=== PATIENT | female | born 1980 | race Caucasian/White ===

== ENCOUNTER 2019-12-14 12:48 | Emergency (ER) | payer MEDICARE, MEDICAID, SELFPAY ==
[2019-12-14] VITALS (9 sets, daily range): BP systolic 87–105; BP diastolic 54–84; PULSE 78–116; RESP 14–18; TEMP 36.4–37.4; O2SAT 97–100; BMI 18.8
--- NOTE | 2019-12-14 14:04 | XRR_ITS ---
PROCEDURE INFORMATION: Exam: XR Chest, 1 View Exam date and time: 12/14/2019 2:17 PM Age: 39 years old Clinical indication: Chest pain; Type not specified TECHNIQUE: Imaging protocol: XR of the chest Views: 1 view. COMPARISON: No relevant prior studies available. FINDINGS: Lungs: Moderately hyperaerated lungs consistent with deep inspiratory effort vs significant reactive airway disease vs moderate COPD . Pleural space: Unremarkable. No pleural effusion. No pneumothorax. Heart/Mediastinum: Unremarkable. No cardiomegaly. Bones/joints: Dextroscoliosis. XR/XR chest 1V portable [id number] IMPRESSION: Moderately hyperaerated lungs consistent with deep inspiratory effort vs significant reactive airway disease vs moderate COPD .
[2019-12-14 15:39] LABS: Alanine Aminotransferase 24 U/L (0-33); Albumin Level 4.3 g/dL (3.5-5.2); Alkaline Phosphatase 34 IU/L (35-105); Anion Gap 19.3 (5-19); Aspartate Amino Transferase 23 U/L (0-32); Blood Urea Nitrogen 17 mg/dL (6-20); Calcium 9.2 mg/dL (8.5-10.5); Carbon Dioxide 18 mmol/L (22-29); Chloride 105 mmol/L (98-107); Globulin 2.9 g/dL (1.3-4.6); Glomerular Filtration Rate 137.4 mL/min (90-130); Glucose 75 mg/dL (65-115); Osmolality Calculated 281 mOsm/kg (285-295); Potassium 4.3 mmol/L (3.5-5.1); Sodium 138 mmol/L (136-145); Total Bilirubin 0.5 mg/dL (0.15-1.2); Total Protein 7.2 g/dL (6.6-8.7)
[2019-12-14 15:50] LABS: Basophils % 0.1 %; Hematocrit 39.6 % (37.0-47.0); Hemoglobin 11.3 g/dL (11.5-15.3); Lymphocytes # 0.8 10^3/uL (0.8-4.8); Lymphocytes % 8.2 %; Mean Corpuscular HGB Conc 28.5 g/dL (30.0-36.0); Mean Corpuscular Hemoglobin 21.8 pg (28.0-34.0); Mean Corpuscular Volume 76.4 fL (81-99); Mean Platelet Volume 11.4 fL (7.4-10.4); Monocytes # 0.2 10^3/uL (0.2-0.9); Monocytes % 1.5 %; Neutrophils # 9.1 10^3/uL (1.8-7.7); Nucleated Red Blood Cells % 0 %; Platelet Count 255 10^3/cmm (130-400); Red Blood Count 5.18 10^6/uL (4.1-5.3); Red Cell Distribution Width 15.1 % (12.1-15.1); White Blood Count 10.1 10^3/uL (4.0-10.0)
[2019-12-14 16:06] LABS: HCG, Serum Qual Negative (Negative)
--- NOTE | 2019-12-14 16:16 | ED_ITS ---
Documented by User: Jorge Luis Tsai DO 12/14/19 16:18 HPI - Weakness General: Chief complaint: Weakness Stated complaint: sent by juliana cárdenas Time Seen by Provider: 12/14/19 15:48 History of Present Illness: HPI Narrative: Patient's caregiver reports that she is diagnosed with urinary tract infection yesterday. She is not sure if the antibiotics have been started. She states that throughout the day today the patient has not been acting her normal self. Patient is always nonverbal but today has seemed rather listless and has not gotten up out of bed. Patient usually walks or paces around the house continuously throughout the day and a good part of the night. MD Complaint: generalized weakness Onset (ago): hour(s) Duration: constant Location: generalized Migration: none Severity: severe Review of Systems General: Reports: 10 or more systems reviewed and unremarkable except in HPI and below PFSH ED PFSH: Social History Smoking and tobacco status: never smoked Alcohol intake: never History of recent travel: No Physical Exam Const: COMMON NORMALS: no acute distress, healthy appearing and well nourished GENERAL APPEARANCE: cooperative and well developed HENMT: COMMON NORMALS: normocephalic and atraumatic HEAD & SCALP: normal to inspection, normocephalic and atraumatic Eye: GENERAL EYE: appearance normal, both eyes and all related structures Neck/C-Spine: COMMON NORMALS: full ROM, no lymphadenopathy and no meningeal signs GENERAL: Yes normal visual inspection CERVICAL SPINE: Yes cervical ROM normal and Yes normal cervical lordosis Chest: COMMONS NORMALS: normal inspection of the chest and normal palpation of entire chest wall Resp: COMMON NORMALS: normal respiratory effort, clear to auscultation bilaterally and percussion normal AUSCULTATION: clear to auscultation bilaterally PERCUSSION: percussion normal Cardio: COMMON NORMALS: regular rate, regular rhythm, S1 normal heart sound present and S2 normal heart sound present JUGULAR VENOUS DISTENTION: no JVD PALPATION: normal PMI RATE: regular rate RHYTHM: regular rhythm HEART SOUNDS: S1 normal heart sound present and S2 normal heart sound present GI: COMMON NORMALS: Soft to palpation and No hepatosplenomegaly present INSPECTION: Yes normal to inspection PALPATION: Yes Soft to palpation and Yes No hepatosplenomegaly present PERCUSSION: normal to percussion : COMMON NORMALS: Yes no CVA tenderness BLADDER/KIDNEY EXAM: Yes no CVA tenderness Back/Pelvis: COMMON NORMALS: no CVA tenderness, thoracic and lumbar spine normal to inspection and thoraco-lumbar ROM normal Extremity: COMMON NORMALS: normal to inspection, full ROM and capillary refill normal Neuro: MENINGEAL SIGNS: Yes no meningeal signs Skin: COMMON NORMALS: no rashes or lesions noted, no wounds and turgor normal GENERAL SKIN EXAM: no rashes or lesions noted, elasticity normal and turgor normal LESIONS: no lesions RASHES: no rashes TRAUMA: no lacerations or abrasions HAIR: normal NAILS: normal Course Vital Signs: Vital signs: Vital Signs Temperature 99.3 F 12/14/19 16:05 Pulse Rate 80 12/14/19 21:22 Respiratory Rate 18 12/14/19 21:22 Blood Pressure 98/63 12/14/19 21:22 Pulse Oximetry 99 12/14/19 21:22 MDM - Weakness Lab Data: Labs: Lab Results 12/14/19 12/14/19 12/14/19 Range/Units 14:45 15:37 15:37 WBC 10.1 H (4.0-10.0) 10^3/ uL RBC 5.18 (4.1-5.3) 10^6/u L Hgb 11.3 L (11.5-15.3) g/dL Hct 39.6 (37.0-47.0) % MCV 76.4 L (81-99) fL MCH 21.8 L (28.0-34.0) pg MCHC 28.5 L (30.0-36.0) g/dL RDW 15.1 (12.1-15.1) % Plt Count 255 (130-400) 10^3/c mm MPV 11.4 H (7.4-10.4) fL Neut % (Auto) 90.0 % Lymph % (Auto) 8.2 % [place] % (Auto) 1.5 % Eos % (Auto) 0.0 % Baso % (Auto) 0.1 % Neut # (Auto) 9.1 H (1.8-7.7) 10^3/u L Lymph # (Auto) 0.8 (0.8-4.8) 10^3/u L [place] # (Auto) 0.2 (0.2-0.9) 10^3/u L Eos # (Auto) 0.0 (0.0-0.8) 10^3/u L Baso # (Auto) 0.0 (0.0-0.1) 10^3/u L Nucleated RBC % (a uto) 0 % Nucleated RBCs # 0.0 /100WBC Sodium 138 (136-145) mmol/L Potassium 4.3 (3.5-5.1) mmol/L Chloride 105 (98-107) mmol/L Carbon Dioxide 18 L (22-29) mmol/L Anion Gap 19.3 H (5-19) BUN 17 (6-20) mg/dL Creatinine 0.5 (0.5-0.9) mg/dL GFR Calculation 137.4 H (90-130) mL/min Glucose 75 (65-115) mg/dL Calculated Osmolal ity 281 L (285-295) mOsm/k g Lactic Acid (0.5-2.2) mmol/L Calcium 9.2 (8.5-10.5) mg/dL Total Bilirubin 0.5 (0.15-1.2) mg/dL AST 23 (0-32) U/L ALT 24 (0-33) U/L Alkaline Phosphata se 34 L (35-105) IU/L Total Protein 7.2 (6.6-8.7) g/dL Albumin 4.3 (3.5-5.2) g/dL Globulin 2.9 (1.3-4.6) g/dL HCG, Qual Negative (Negative) Urine Color (Yellow) Urine Appearance (CLEAR) Urine pH (5-7) Ur Specific Gravit y (1.005-1.030) Urine Protein (Negative) Urine Glucose (UA) (Normal) Urine Ketones (Negative) Urine Blood (Negative) Urine Nitrate (Negative) Urine Bilirubin (NEGATIVE) Urine Urobilinogen (Negative) mg/dL Ur Leukocyte Renea ase (Negative) 12/14/19 12/14/19 Range/Units 15:37 20:20 WBC (4.0-10.0) 10^3/ uL RBC (4.1-5.3) 10^6/u L Hgb (11.5-15.3) g/dL Hct (37.0-47.0) % MCV (81-99) fL MCH (28.0-34.0) pg MCHC (30.0-36.0) g/dL RDW (12.1-15.1) % Plt Count (130-400) 10^3/c mm MPV (7.4-10.4) fL Neut % (Auto) % Lymph % (Auto) % [place] % (Auto) % Eos % (Auto) % Baso % (Auto) % Neut # (Auto) (1.8-7.7) 10^3/u L Lymph # (Auto) (0.8-4.8) 10^3/u L [place] # (Auto) (0.2-0.9) 10^3/u L Eos # (Auto) (0.0-0.8) 10^3/u L Baso # (Auto) (0.0-0.1) 10^3/u L Nucleated RBC % (a uto) % Nucleated RBCs # /100WBC Sodium (136-145) mmol/L Potassium (3.5-5.1) mmol/L Chloride (98-107) mmol/L Carbon Dioxide (22-29) mmol/L Anion Gap (5-19) BUN (6-20) mg/dL Creatinine (0.5-0.9) mg/dL GFR Calculation (90-130) mL/min Glucose (65-115) mg/dL Calculated Osmolal ity (285-295) mOsm/k g Lactic Acid 1.4 (0.5-2.2) mmol/L Calcium (8.5-10.5) mg/dL Total Bilirubin (0.15-1.2) mg/dL AST (0-32) U/L ALT (0-33) U/L Alkaline Phosphata se (35-105) IU/L Total Protein (6.6-8.7) g/dL Albumin (3.5-5.2) g/dL Globulin (1.3-4.6) g/dL HCG, Qual (Negative) Urine Color Yellow (Yellow) Urine Appearance Clear (CLEAR) Urine pH 5 (5-7) Ur Specific Gravit y 1.015 (1.005-1.030) Urine Protein Neg (Negative) Urine Glucose (UA) Norm (Normal) Urine Ketones 2+ H (Negative) Urine Blood Neg (Negative) Urine Nitrate Negative (Negative) Urine Bilirubin Neg (NEGATIVE) Urine Urobilinogen Norm (Negative) mg/dL Ur Leukocyte Renea ase Negative (Negative) Discharge Plan Discharge Patient Disposition: Home, Self-Care Clinical Impression: Dehydration Condition: Stable Prescriptions: No Action escitalopram oxalate [Lexapro] 10 mg tablet 10 mg PO DAILY RF: 0 Alyacen 35 (28) 1-35 mg-mcg tablet 1 tab PO DAILY RF: 0 diphenhydramine HCl [Allergy (diphenhydramine)] 12.5 mg/5 mL liquid 25 mg PO Q6H PRN (Reason: unknowm) RF: 0 clotrimazole-betamethasone 1-0.05 % cream 1 applic TOPICAL BID RF: 0 clotrimazole 1 % cream 1 applic TOPICAL .every 4 hours RF: 0 carbamide peroxide [Debrox] 6.5 % drops 5 drop EAR-BOTH DAILY RF: 0 bismuth subsalicylate [Pepto-Bismol] 262 mg tablet,chewable 1 tab PO .prn PRN (Reason: unknown) RF: 0 acetaminophen [Tylenol] 325 mg tablet 325 mg PO .every 4 hours PRN (Reason: unknown) RF: 0 promethazine 25 mg suppository 25 mg ID .prn PRN (Reason: unknown) RF: 0 Dqfn-Dc-Qiau with Iron 0.5 mg fluoride -10 mg iron tablet,chewable 1 tab PO DAILY RF: 0 loratadine 5 mg/5 mL solution 10 ml PO DAILY RF: 0 polyethylene glycol 3350 [Miralax] 17 gram/dose powder 17 gm PO DAILY RF: 0 Neosporin (bad-zbx-njieq) 3.5mg-400 unit- 5,000 unit/gram Ointment 1 applic TOPICAL DAILY PRN (Reason: skin) RF: 0 acetaminophen 120 mg Suppository 120 mg ID DAILY PRN (Reason: pain/fever) RF: 0 Robitussin Cough and Cold CF 2.5-5-50 mg/5 mL Liquid 15 ml PO Q4H PRN (Reason: Cough) RF: 0 Anbesol Cold Sore 20-3-1-64.9 % Ointment 1 ea TOPICAL DAILY PRN (Reason: unknown) RF: 0 Discharge Orders: Discharge Order (Routine); Ordered 12/14/19 Ordered By: Gwen Hansen Referrals: Esa Buchanan MD [Primary Care Provider] - 1-3 days Discharge Diet: Advance as tolerated Discharge Activity: Resume usual activity Patient Instructions: Dehydration (ED) Discharge Date/Time: 12/14/19 21:23 Coding Level of Care Code ED Adjunct Instructor Of Women'S Studies for Chg Fwd Exam Comprehensive Documented by User: Gwen Hansen MD 12/14/19 21:25 HPI - Weakness General: Chief complaint: Weakness Stated complaint: sent by juliana cárdenas Time Seen by Provider: 12/14/19 15:48 PFSH ED PFSH: Social History Smoking and tobacco status: never smoked Alcohol intake: never History of recent travel: No Course Vital Signs: Vital signs: Vital Signs Temperature 99.3 F 12/14/19 16:05 Pulse Rate 80 12/14/19 21:22 Respiratory Rate 18 12/14/19 21:22 Blood Pressure 98/63 12/14/19 21:22 Pulse Oximetry 99 12/14/19 21:22 MDM - Weakness MDM Narrative: Medical decision making narrative: Patient presents with weakness likely from dehydration. She feels improved after IV fluids and lab work here is normal. Patient does not have a urinary tract infection. Caregiver feels patient is stable for discharge and I feel she is stable as well. I informed caregiver she needs to push fluids. She is return to ER if worsening. They understand and agree to the plan. Lab Data: Labs: Lab Results 12/14/19 12/14/19 12/14/19 Range/Units 14:45 15:37 15:37 WBC 10.1 H (4.0-10.0) 10^3/ uL RBC 5.18 (4.1-5.3) 10^6/u L Hgb 11.3 L (11.5-15.3) g/dL Hct 39.6 (37.0-47.0) % MCV 76.4 L (81-99) fL MCH 21.8 L (28.0-34.0) pg MCHC 28.5 L (30.0-36.0) g/dL RDW 15.1 (12.1-15.1) % Plt Count 255 (130-400) 10^3/c mm MPV 11.4 H (7.4-10.4) fL Neut % (Auto) 90.0 % Lymph % (Auto) 8.2 % [place] % (Auto) 1.5 % Eos % (Auto) 0.0 % Baso % (Auto) 0.1 % Neut # (Auto) 9.1 H (1.8-7.7) 10^3/u L Lymph # (Auto) 0.8 (0.8-4.8) 10^3/u L [place] # (Auto) 0.2 (0.2-0.9) 10^3/u L Eos # (Auto) 0.0 (0.0-0.8) 10^3/u L Baso # (Auto) 0.0 (0.0-0.1) 10^3/u L Nucleated RBC % (a uto) 0 % Nucleated RBCs # 0.0 /100WBC Sodium 138 (136-145) mmol/L Potassium 4.3 (3.5-5.1) mmol/L Chloride 105 (98-107) mmol/L Carbon Dioxide 18 L (22-29) mmol/L Anion Gap 19.3 H (5-19) BUN 17 (6-20) mg/dL Creatinine 0.5 (0.5-0.9) mg/dL GFR Calculation 137.4 H (90-130) mL/min Glucose 75 (65-115) mg/dL Calculated Osmolal ity 281 L (285-295) mOsm/k g Lactic Acid (0.5-2.2) mmol/L Calcium 9.2 (8.5-10.5) mg/dL Total Bilirubin 0.5 (0.15-1.2) mg/dL AST 23 (0-32) U/L ALT 24 (0-33) U/L Alkaline Phosphata se 34 L (35-105) IU/L Total Protein 7.2 (6.6-8.7) g/dL Albumin 4.3 (3.5-5.2) g/dL Globulin 2.9 (1.3-4.6) g/dL HCG, Qual Negative (Negative) Urine Color (Yellow) Urine Appearance (CLEAR) Urine pH (5-7) Ur Specific Gravit y (1.005-1.030) Urine Protein (Negative) Urine Glucose (UA) (Normal) Urine Ketones (Negative) Urine Blood (Negative) Urine Nitrate (Negative) Urine Bilirubin (NEGATIVE) Urine Urobilinogen (Negative) mg/dL Ur Leukocyte Renea ase (Negative) 12/14/19 12/14/19 Range/Units 15:37 20:20 WBC (4.0-10.0) 10^3/ uL RBC (4.1-5.3) 10^6/u L Hgb (11.5-15.3) g/dL Hct (37.0-47.0) % MCV (81-99) fL MCH (28.0-34.0) pg MCHC (30.0-36.0) g/dL RDW (12.1-15.1) % Plt Count (130-400) 10^3/c mm MPV (7.4-10.4) fL Neut % (Auto) % Lymph % (Auto) % [place] % (Auto) % Eos % (Auto) % Baso % (Auto) % Neut # (Auto) (1.8-7.7) 10^3/u L Lymph # (Auto) (0.8-4.8) 10^3/u L [place] # (Auto) (0.2-0.9) 10^3/u L Eos # (Auto) (0.0-0.8) 10^3/u L Baso # (Auto) (0.0-0.1) 10^3/u L Nucleated RBC % (a uto) % Nucleated RBCs # /100WBC Sodium (136-145) mmol/L Potassium (3.5-5.1) mmol/L Chloride (98-107) mmol/L Carbon Dioxide (22-29) mmol/L Anion Gap (5-19) BUN (6-20) mg/dL Creatinine (0.5-0.9) mg/dL GFR Calculation (90-130) mL/min Glucose (65-115) mg/dL Calculated Osmolal ity (285-295) mOsm/k g Lactic Acid 1.4 (0.5-2.2) mmol/L Calcium (8.5-10.5) mg/dL Total Bilirubin (0.15-1.2) mg/dL AST (0-32) U/L ALT (0-33) U/L Alkaline Phosphata se (35-105) IU/L Total Protein (6.6-8.7) g/dL Albumin (3.5-5.2) g/dL Globulin (1.3-4.6) g/dL HCG, Qual (Negative) Urine Color Yellow (Yellow) Urine Appearance Clear (CLEAR) Urine pH 5 (5-7) Ur Specific Gravit y 1.015 (1.005-1.030) Urine Protein Neg (Negative) Urine Glucose (UA) Norm (Normal) Urine Ketones 2+ H (Negative) Urine Blood Neg (Negative) Urine Nitrate Negative (Negative) Urine Bilirubin Neg (NEGATIVE) Urine Urobilinogen Norm (Negative) mg/dL Ur Leukocyte Renea ase Negative (Negative) Discharge Plan Discharge Patient Disposition: Home, Self-Care Clinical Impression: Dehydration Condition: Stable Prescriptions: No Action escitalopram oxalate [Lexapro] 10 mg tablet 10 mg PO DAILY RF: 0 Alyacen (28) 1-35 mg-mcg tablet 1 tab PO DAILY RF: 0 diphenhydramine HCl [Allergy (diphenhydramine)] 12.5 mg/5 mL liquid 25 mg PO Q6H PRN (Reason: unknowm) RF: 0 clotrimazole-betamethasone 1-0.05 % cream 1 applic TOPICAL BID RF: 0 clotrimazole 1 % cream 1 applic TOPICAL .every 4 hours RF: 0 carbamide peroxide [Debrox] 6.5 % drops 5 drop EAR-BOTH DAILY RF: 0 bismuth subsalicylate [Pepto-Bismol] 262 mg tablet,chewable 1 tab PO .prn PRN (Reason: unknown) RF: 0 acetaminophen [Tylenol] 325 mg tablet 325 mg PO .every 4 hours PRN (Reason: unknown) RF: 0 promethazine 25 mg suppository 25 mg ID .prn PRN (Reason: unknown) RF: 0 Igyo-Zc-Dhxx with Iron 0.5 mg fluoride -10 mg iron tablet,chewable 1 tab PO DAILY RF: 0 loratadine 5 mg/5 mL solution 10 ml PO DAILY RF: 0 polyethylene glycol 3350 [Miralax] 17 gram/dose powder 17 gm PO DAILY RF: 0 Neosporin (kfs-xjy-rgung) 3.5mg-400 unit- 5,000 unit/gram Ointment 1 applic TOPICAL DAILY PRN (Reason: skin) RF: 0 acetaminophen 120 mg Suppository 120 mg ID DAILY PRN (Reason: pain/fever) RF: 0 Robitussin Cough and Cold CF 2.5-5-50 mg/5 mL Liquid 15 ml PO Q4H PRN (Reason: Cough) RF: 0 Anbesol Cold Sore 20-3-1-64.9 % Ointment 1 ea TOPICAL DAILY PRN (Reason: unknown) RF: 0 Discharge Orders: Discharge Order (Routine); Ordered 12/14/19 Ordered By: Gwen Hansen Referrals: Esa Buchanan MD [Primary Care Provider] - 1-3 days Discharge Diet: Advance as tolerated Discharge Activity: Resume usual activity Patient Instructions: Dehydration (ED) Discharge Date/Time: 12/14/19 21:23 Coding Level of Care Code ED Adjunct Instructor Of Women'S Studies for Chg Fwd Exam Comprehensive
[2019-12-14] MEDS: sodium chloride 0.9% 1,000 ML 999 ML IV ×2 (16:24→17:27)
[2019-12-14 18:39] LABS: Lactic Sepsis W/Reflex 1.4 mmol/L (0.5-2.2)
[2019-12-14 20:45] LABS: Add Urine Microscopic? NO
[2019-12-14 21:11] LABS: Bilirubin Urine Neg (NEGATIVE); Blood Urine Neg (Negative); Glucose Urine UA Norm (Normal); Ketones Urine 2+ (Negative); Leukocyte Esterase Urine Negative (Negative); Nitrate Urine Negative (Negative); Protein Urine Neg (Negative); Specific Gravity, Urine 1.015 (1.005-1.030); Urine Appearance Clear (CLEAR); Urine Color Yellow (Yellow); Urobilinogen Urine Norm (Negative); pH Urine 5 (5-7)
== END 2019-12-14 21:23 | disposition home or self-care (01) ==
PROVIDERS: Physician Assistant; Emergency Provider Emergency Medicine; Family Provider Internal Medicine; PCP Internal Medicine
DX: E86.0 Dehydration (principal)
CPT/HCPCS: 12345; 36415; 71045; 80053; 81003; 83605; 84703; 85025; 96360; 96361; 99283; J7030

== ENCOUNTER 2020-05-13 09:25 | Outpatient (CLI) | payer MEDICARE, MEDICAID, SELFPAY ==
--- NOTE | 2020-05-13 09:33 | MM_ITS ---
WS: [id number] SCREENING DIGITAL MAMMOGRAM WITH CAD HISTORY: SCREENING COMPARISON: 03/16/2019 and 02/27/2019 RIGHT CCA submitted. Computer aided detection analyzed. Breast composition: There are scattered areas of fibroglandular density. Only a single RIGHT CC proje ction is obtained. Patient was markedly uncooperative for this examination. Only a single image was o btained. No abnormality noted on the RIGHT CC projection. MM/[id number] IMPRESSION: BI-RADS: 0-Incomplete: Need additional imaging evaluation FOLLOW UP: See Report Single RIGHT CC projection submitted. Patient was unable to cooperate for this examination. This is an incomplete evaluation. The RIGHT CC projection is negat sherri.
== END 2020-05-13 09:26 | disposition home or self-care (01) ==
LOC: RADSHAW 09:31
PROVIDERS: PCP Internal Medicine; Visit Provider Internal Medicine
DX: Z12.31 Encounter for screening mammogram for malignant neoplasm of breast (principal); N64.89 Other specified disorders of breast
CPT/HCPCS: 77067

== ENCOUNTER 2020-05-30 10:57 | Outpatient (CLI) | payer MEDICARE, MEDICAID, SELFPAY ==
--- NOTE | 2020-05-30 11:00 | MM_ITS ---
WS: [id number] DIAGNOSTIC BILATERAL DIGITAL MAMMOGRAM WITH CAD HISTORY: Incomplete evaluation due to lack of cooperation on 05/13/2020. COMPARISON: 05/13/2020, 03/16/2019, 02/27/2019 and 02/23/2018. TECHNIQUE: LEFT craniocaudad, mediolateral oblique, and mediolateral views are submitted. Computer ai ded detection utilized. Breast composition: The breasts are extremely dense, which lowers the sensitivity of mammography. Add itional views demonstrate no abnormalities. There are no areas of distortion or calcification. MM/[id number] IMPRESSION: BI-RADS: 2-Benign FOLLOW UP: 1 Year Follow-up
== END 2020-05-30 10:58 | disposition home or self-care (01) ==
LOC: RADSHAW 11:02
PROVIDERS: PCP Internal Medicine; Visit Provider Internal Medicine
DX: R92.8 Other abnormal and inconclusive findings on diagnostic imaging of breast (principal)
CPT/HCPCS: 77066

== ENCOUNTER 2020-08-03 23:58 | Emergency (ER) | payer MEDICARE, MEDICAID, SELFPAY ==
[2020-08-04 00:03] VITALS: BP 119/77; PULSE 114; RESP 18; TEMP 36.7; O2SAT 96; BMI 19.8
--- NOTE | 2020-08-04 00:11 | PC.NURSE ---
Pt is noted to have a 1 cm laceration to top of head bleeding controlled.
[2020-08-04] MEDS: clindamycin 150 mg Capsule 300 MG PO (02:03)
[2020-08-04 02:08] VITALS: BP 104/60; PULSE 111; RESP 18; O2SAT 96
--- NOTE | 2020-08-04 04:09 | ED_ITS ---
HPI - Fall General: Chief Complaint: Fall Stated Complaint: FALL Time Seen by Provider: 08/04/20 00:56 History of Present Illness: HPI Narrative: 39-year-old female with a history significant for developmental delay. She is nonverbal. She presents with 2 complaints, the first is that of a fall striking her head on a bed rail this evening. There is no loss of consciousness, change in behavior following, or vomiting following the injury. She does have a small laceration to her scalp. The second complaint is that of a swollen area to her left buttock that has opened up and drained. It is evidently been tender, because actually will not sit for long, and wants to stand. No fever. It started to drain a couple of days ago and continues to do so. complaint: fall Onset (ago): minute(s) Fall from: standing Fall witnessed: no Place fall occurred: other (shelter) Loss of consciousness: None Prolonged down time: no Symptoms prior to fall: none Location of injury: head Quality: other Associated symptoms-after fall: Denies confusion, difficulty walking or short of breath Review of Systems General: Reports: ROS unobtainable due to medical condition Neuro: Denies: difficulty walking or confusion PFSH ED PFSH: Social History Smoking and tobacco status: never smoked Alcohol intake: never History of recent travel: No Physical Exam Const: COMMON NORMALS: well nourished EXAM LIMITATIONS: behavioral limitations and other limitations GENERAL APPEARANCE: cooperative ORIENTATION/CONSCIOUSNESS: Yes awake HENMT: COMMON NORMALS: normocephalic and Normal external nose present HEAD & SCALP: normocephalic and laceration (Frontoparietal, 1 cm.) FACE & SINUS: normal facial exam NOSE: Normal external nose present and Normal nares present MOUTH: tongue normal Eye: COMMON NORMALS: Equal, round and reactive pupils present and EOMs intact bilaterally PUPIL: Yes Equal, round and reactive pupils present Resp: COMMON NORMALS: normal respiratory effort, No use of accessory muscles and clear to auscultation bilaterally AUSCULTATION: clear to auscultation bilaterally Cardio: COMMON NORMALS: regular rate and regular rhythm RATE: regular rate RHYTHM: regular rhythm Skin: NARRATIVE SKIN EXAM: Examination of the buttocks reveals a fluctuant and indurated skin abscess over the superior left buttock, near the gluteal cleft. It is partially open with some old drainage there is surrounding erythema without streaking. Procedures Abscess I/D Site: franko-rectal Side (if applicable): left Local Anesthetic: lidocaine 1% Amount of anesthesia used (mL): 5 Technique: incised with #11 blade Amount of fluid expressed (mL): 30 Irrigation: No Packing used?: plain Laceration Laceration 1: Site: scalp Side (If applicable): left Size (cm): 1 Depth: simple, single layer Local Anesthetic: lidocaine 1% Skin layer closed with: other (staple) Number of sutures: 1 Technique: simple, interrupted Course Vital Signs: Vital signs: Vital Signs Temperature 98.1 F 08/04/20 00:03 Pulse Rate 111 H 08/04/20 02:08 Respiratory Rate 18 08/04/20 02:08 Blood Pressure 104/60 08/04/20 02:08 Pulse Oximetry 96 08/04/20 02:08 MDM - Fall MDM Narrative: Medical decision making narrative: No signs of closed head injury on exam. Laceration is repaired. Abscess is drained and packed. He tolerated both procedures well. Clindamycin for antibiotic coverage. Outpatient follow-up. Discharge Plan Discharge Patient Disposition: Home Clinical Impression: Abscess and cellulitis of gluteal region Laceration of scalp Qualifiers: Encounter type: initial encounter Qualified Code(s): S01.01XA - Laceration without foreign body of scalp, initial encounter Condition: Stable Prescriptions: New clindamycin HCl 300 mg capsule 300 mg PO Q8H 7 Days Qty: 21 RF: 0 No Action escitalopram oxalate [Lexapro] 10 mg tablet 10 mg PO DAILY RF: 0 Alyacen (28) 1-35 mg-mcg tablet 1 tab PO DAILY RF: 0 diphenhydramine HCl [Allergy (diphenhydramine)] 12.5 mg/5 mL liquid 25 mg PO Q6H PRN (Reason: unknowm) RF: 0 clotrimazole-betamethasone 1-0.05 % cream 1 applic TOPICAL BID RF: 0 clotrimazole 1 % cream 1 applic TOPICAL .every 4 hours RF: 0 carbamide peroxide [Debrox] 6.5 % drops 5 drop EAR-BOTH DAILY RF: 0 bismuth subsalicylate [Pepto-Bismol] 262 mg tablet,chewable 1 tab PO .prn PRN (Reason: unknown) RF: 0 acetaminophen [Tylenol] 325 mg tablet 325 mg PO .every 4 hours PRN (Reason: unknown) RF: 0 promethazine 25 mg suppository 25 mg CO .prn PRN (Reason: unknown) RF: 0 Wqie-Yj-Ubca with Iron 0.5 mg fluoride -10 mg iron tablet,chewable 1 tab PO DAILY RF: 0 loratadine 5 mg/5 mL solution 10 ml PO DAILY RF: 0 polyethylene glycol 3350 [Miralax] 17 gram/dose powder 17 gm PO DAILY RF: 0 fluticasone propionate [Flonase Allergy Relief] 50 mcg/actuation spray,suspension 1 spray INTRANASAL DAILY Qty: 16 RF: 0 Neosporin (tza-qes-icnby) 3.5mg-400 unit- 5,000 unit/gram Ointment 1 applic TOPICAL DAILY PRN (Reason: skin) RF: 0 acetaminophen 120 mg Suppository 120 mg CO DAILY PRN (Reason: pain/fever) RF: 0 Robitussin Cough and Cold CF 2.5-5-50 mg/5 mL Liquid 15 ml PO Q4H PRN (Reason: Cough) RF: 0 Anbesol Cold Sore 20-3-1-64.9 % Ointment 1 ea TOPICAL DAILY PRN (Reason: unknown) RF: 0 Discharge Orders: Discharge ED (Routine); Ordered 08/04/20 Ordered By: Jose Pike Referrals: Esa Buchanan MD [Primary Care Provider] - 4-7 days Patient Instructions: Scalp Laceration, Abscess Incision and Drainage (ED), Abscess (ED) Activity Restrictions/Additional Instructions: Return for fever greater than 100 despite 2-3 doses of antibiotics, spreading redness, swelling, despite 2-3 doses of antibiotics. Keep the packing trimmed to near skin level. Can be removed after 4 days if any still present. Dressing changes twice daily at least. Scalp staple needs to come out in 5 to 7 days. See your doctor in that time for wound check as well. Antibiotics as directed. Coding Level of Care Code ED Home Improvement Installer for Nuha Murry
== END 2020-08-04 02:10 | disposition home or self-care (01) ==
PROVIDERS: Emergency Provider Emergency Medicine; PCP Internal Medicine
DX: S01.01XA Laceration without foreign body of scalp, initial encounter (principal); L02.31 Cutaneous abscess of buttock; L03.317 Cellulitis of buttock; W19.XXXA Unspecified fall, initial encounter
CPT/HCPCS: 10060; 12001; 99283

== ENCOUNTER → 2021-05-28 10:39 | Outpatient (BNVA) | payer MEDICARE, MEDICAID, SELFPAY | PROVIDERS: PCP Internal Medicine; Visit Provider Nurse Practitioner Family | DX: Z01.419 Encounter for gynecological examination (general) (routine) without abnormal findings (principal); L02.93 Carbuncle, unspecified | CPT/HCPCS: 87624 ==

== ENCOUNTER 2021-08-19 15:28 | Outpatient (CLI) | payer MEDICARE, MEDICAID, SELFPAY ==
--- NOTE | 2021-08-19 15:52 | MM_ITS ---
WS: [id number] BILATERAL SCREENING 3D TOMOSYNTHESIS DIGITAL MAMMOGRAM WITH CAD HISTORY: SCREENING COMPARISON: 05/30/2020, 05/13/2020, 03/16/2019 and 02/27/2019 Bilateral CC and MLO views submitted. Computer aided detection analyzed. Breast composition: The breasts are heterogeneously dense, which may obscure small masses. No suspici ous masses, microcalcifications or architectural distortion. This study is significantly limited due to motion artifact. Patient was unable to remain still for this examination and there is significant motion artifact. MM/[id number] IMPRESSION: BI-RADS: 2-Benign FOLLOW UP: 1 Year Follow-up Quality of this examination is compromised by significant motion artifact due t o patient's condition.
== END 2021-08-19 15:29 | disposition home or self-care (01) ==
LOC: RADSHAW 15:38
PROVIDERS: PCP Internal Medicine; Visit Provider Nurse Practitioner Family
DX: Z12.31 Encounter for screening mammogram for malignant neoplasm of breast (principal)
CPT/HCPCS: 77063; 77067

== ENCOUNTER 2022-05-16 08:59 | Emergency (ER) | payer MEDICARE, MEDICAID, SELFPAY ==
[2022-05-16 09:12] VITALS: PULSE 91; RESP 16; TEMP 36.3; O2SAT 100
--- NOTE | 2022-05-16 10:06 | ED_ITS ---
HPI - Extremity Problem General: Chief complaint: Extremity Injury, Upper Stated complaint: finger injury on Left hand Time Seen by Provider: 05/16/22 10:06 History of Present Illness: left hand redness and swelling Review of Systems General: Reports: 10 or more systems reviewed and unremarkable except in HPI and below Narrative: Pt is nonverbal. Presents with left hand swelling and redness. Musc: Reports: extremity pain, extremity swelling (left hand ), joint swelling and joint redness PFSH ED PFSH: Social History Smoking and tobacco status: never smoked Alcohol intake: never History of recent travel: No Female Reproductive History: Spontaneous abortions: No Physical Exam Const: COMMON NORMALS: no acute distress (pt is nonverbal due to developmental delays ), no limitations, healthy appearing, alert and well nourished GENERAL APPEARANCE: cooperative and comfortable ORIENTATION/CONSCIOUSNESS: Yes awake, Yes oriented to person, Yes oriented to place and Yes oriented to time HENMT: COMMON NORMALS: normocephalic, atraumatic, external ears normal, EAC's normal, TM's normal bilaterally and Normal external nose present HEAD & SCALP: normal to inspection, normocephalic and atraumatic FACE & SINUS: normal facial exam, sinuses nontender and face symmetric NOSE: Normal external nose present, Normal nares present and No nasal discharge present EXTERNAL EAR: Yes external ears normal EXTERNAL AUDITORY CANAL: EAC's normal TYMPANIC MEMBRANE: TM's normal bilaterally MOUTH: Normal oral and palatal mucosa present, lip normal and tongue normal THROAT: posterior oropharynx normal, tonsils normal and uvula midline Eye: COMMON NORMALS: Equal, round and reactive pupils present, EOMs intact bilaterally and conjunctivae normal GENERAL EYE: appearance normal, both eyes and all related structures and normal light reflex EYELID: eyelids normal CONJUNCTIVA: Yes conjunctivae normal PUPIL: Yes Equal, round and reactive pupils present EOM: Yes EOM abnormal DIRECT OPHTHALMOSCOPY: Yes normal light reflex Neck/C-Spine: COMMON NORMALS: full ROM, no lymphadenopathy, supple, no meningeal signs, no JVD and Thyroid normal GENERAL: Yes normal visual inspection THYROID: Thyroid normal CERVICAL SPINE: Yes cervical ROM normal and Yes normal cervical lordosis Lymph: LYMPHATIC: no lymphadenopathy noted Chest: COMMONS NORMALS: normal inspection of the chest and normal palpation of entire chest wall Resp: COMMON NORMALS: normal respiratory effort, No retractions and clear to auscultation bilaterally AUSCULTATION: clear to auscultation bilaterally Cardio: COMMON NORMALS: no JVD, regular rate, regular rhythm, S1 normal heart sound present, S2 normal heart sound present, No gallops present (Cardio), No clicks present (Cardio), No murmurs present (Cardio), No rub (Cardio) and Peripheral pulses 2+ throughout RATE: regular rate RHYTHM: regular rhythm HEART SOUNDS: S1 normal heart sound present and S2 normal heart sound present PERIPHERAL PULSES: Peripheral pulses 2+ throughout GI: COMMON NORMALS: Normal to inspection, nondistended, normoactive bowel sounds present, Soft to palpation, non-tender and no masses PALPATION: Yes Soft to palpation : COMMON NORMALS: Yes no CVA tenderness and Yes normal external appearance BLADDER/KIDNEY EXAM: Yes no CVA tenderness Back/Pelvis: COMMON NORMALS: no CVA tenderness, thoracic and lumbar spine normal to inspection, no thoracic nor lumbar tenderness and thoraco-lumbar ROM normal Extremity: COMMON NORMALS: normal to inspection, full ROM, capillary refill normal, no joint enlargement, no clubbing, cyanosis or edema, no calf tenderness and no pedal edema GENERAL: Yes normal exam except as noted LEFT UPPER EXTREMITY: Yes hand & digits (redness at base of left index finger and swelling ) Neuro: COMMON NORMALS: moves all extremities, no focal motor deficits, no sensory deficits noted and gait normal SENSORIUM/ORIENTATION: Yes alert, Yes oriented to person, Yes oriented to place and Yes oriented to time MENINGEAL SIGNS: Yes no meningeal signs Psych: COMMON NORMALS: mental status grossly normal, Normal thought process present, cooperative, normal affect, speech normal and activity/motor behavior normal SPEECH: Yes normal speech THOUGHT PROCESS: Normal thought process present Skin: COMMON NORMALS: no rashes or lesions noted, no wounds and turgor normal GENERAL SKIN EXAM: no rashes or lesions noted and turgor normal Course ED course: Pt presents to ER with caregiver; notes that this am when handing pt her meds she was unable to grasp with left hand as usual. She has redness and swelling noted. Pt does thrash hands some in sleep but unable to state if any known trauma or insect bites. Will do xray to rule out fx. Vital Signs: Vital signs: Vital Signs Temperature 97.3 F L 05/16/22 09:12 Pulse Rate 91 05/16/22 09:12 Respiratory Rate 16 05/16/22 09:12 Pulse Oximetry 100 05/16/22 09:12 MDM - Extremity (Nontraumatic) Medical Decision Making Avulsion Fx of the left index finger, proximal phalanx Because pt is non verbal and the fx is likely not going to be surgically repaired we will implement rice therapy but hold on attempting cast. follow up with ortho to ensure no changes to plan. Discharge Plan Discharge Patient Disposition: Home Clinical Impression: Closed avulsion fracture of proximal phalanx of finger Condition: Stable Prescriptions: No Action clotrimazole-betamethasone 1-0.05 % cream 1 applic TOPICAL BID carbamide peroxide [Debrox] 6.5 % drops 5 drop EAR-BOTH DAILY bismuth subsalicylate [Pepto-Bismol] 262 mg tablet,chewable 1 tab PO .prn PRN (Reason: unknown) Rx Instructions: do not exceed 16 tabs per 24 hrs promethazine 25 mg suppository 25 mg VT .prn PRN (Reason: unknown) polyethylene glycol 3350 [Miralax] 17 gram/dose powder 17 gm PO DAILY Rx Instructions: pt's chronic care nurse states she takes 1 tablespoon per evening. fluticasone propionate [Flonase Allergy Relief] 50 mcg/actuation spray,suspension 1 spray INTRANASAL DAILY Qty: 16 0RF Rx Instructions: administer into each nostril doxycycline hyclate 50 mg capsule 50 mg PO DAILY Qty: 90 1RF doxycycline hyclate 100 mg capsule 100 mg PO BID Qty: 60 0RF escitalopram oxalate 10 mg tablet 20 mg PO DAILY Qty: 60 12RF Rx Instructions: Take 2 tablets once daily in the morning for depression. Robitussin Cough and Cold CF 2.5-5-50 mg/5 mL liquid 15 ml PO Q4H PRN (Reason: Cough) Qty: 118 3RF Anbesol (benzocaine) Max Str 20 % liquid See Rx Instructions .ROUTE .COMPLEX Qty: 12 12RF Dose Instruction: APPLY TO SORE IN MOUTH NEEDED Rx Instructions: APPLY TO SORE IN MOUTH NEEDED acetaminophen 650 mg suppository See Rx Instructions .ROUTE .COMPLEX Qty: 12 5RF Dose Instruction: INSERT ONE SUPPOSITORY RECTALLY EVERY 4 HOURS NEEDED FOR PAIN OR elevated temperature >100 Rx Instructions: INSERT ONE SUPPOSITORY RECTALLY EVERY 4 HOURS NEEDED FOR PAIN OR elevated temperature >100 Triple Antibiotic 3.5mg-400 unit- 5,000 unit/gram ointment See Rx Instructions .ROUTE .COMPLEX Qty: 1 5RF Dose Instruction: APPLY topically TO cuts AND abrasions NEEDED Rx Instructions: APPLY topically TO cuts AND abrasions NEEDED benzoyl peroxide [Panoxyl] 10 % cleanser 1 applic topical .at bedtime Qty: 237 11RF medroxyprogesterone 150 mg/mL syringe See Rx Instructions .ROUTE .COMPLEX Qty: 1 3RF Dose Instruction: inject 1ml INTRAMUSCULARLY every THREE MONTHS *start WITHIN FIVE DAYS of mesus onset* Rx Instructions: inject 1ml INTRAMUSCULARLY every THREE MONTHS *start WITHIN FIVE DAYS of mesus onset* Flintstones with Iron 18 mg iron tablet,chewable See Rx Instructions .ROUTE .COMPLEX Qty: 30 5RF Dose Instruction: TAKE ONE TABLET BY MOUTH EVERY DAY FOR supplement Rx Instructions: TAKE ONE TABLET BY MOUTH EVERY DAY FOR supplement clotrimazole 1 % cream See Rx Instructions .ROUTE .COMPLEX Qty: 30 5RF Dose Instruction: APPLY TO THE AFFECTED AREA(S) TWICE DAILY NEEDED *WITH EQUAL PART OF BETAMETHASONE * Rx Instructions: APPLY TO THE AFFECTED AREA(S) TWICE DAILY NEEDED *WITH EQUAL PART OF BETAMETHASONE * Benadryl Itch Stopping 1-0.1 % cream See Rx Instructions .ROUTE .COMPLEX Qty: 28.3 5RF Dose Instruction: APPLY topically TO INSECT BITES TWICE DAILY NEEDED Rx Instructions: APPLY topically TO INSECT BITES TWICE DAILY NEEDED loratadine 5 mg/5 mL solution See Rx Instructions .ROUTE .COMPLEX Qty: 240 5RF Dose Instruction: TAKE 10ML BY MOUTH EVERY DAY FOR SEASONAL ALLERGIES Rx Instructions: TAKE 10ML BY MOUTH EVERY DAY FOR SEASONAL ALLERGIES diphenhydramine HCl [Allergy (diphenhydramine)] 12.5 mg/5 mL liquid 25 mg PO Q6H PRN (Reason: post nasal drip/insect bites/allergy ) Qty: 300 6RF Rx Instructions: PRN Post nasal drip/insect bites/allergy Discharge Orders: Discharge ED (Routine); Ordered 05/16/22 Ordered By: Silvia Garrison Referrals: Shobonier,Gus W, DO [Primary Care Provider] - Patient Instructions: Opioid Safety, Pain Management Coding Level of Care Code ED Junior Network Administrator for Chg Fwd Exam Comprehensive
--- NOTE | 2022-05-16 10:46 | XRR_ITS ---
PROCEDURE INFORMATION: Exam: XR Left Hand Exam date and time: 05/16/2022 10:51 AM Age: 41 years old Clinical indication: Swelling; Fingers; Left; Additional info: Swelling, pain TECHNIQUE: Imaging protocol: Radiologic exam of the Left hand. Views: 3 or more views. Total images: [id number] COMPARISON: No relevant prior studies available. FINDINGS: Bones/joints: Fracture of the medial base of the proximal phalanx of the 2nd digit with fragment rotated approximately 90 degrees medially. This extends to the articular surface. No additional fracture, subluxation, or dislocation detected. Soft tissues: Soft tissue swelling between base of 2nd and 3rd digit. XR/XR hand LT 2V [id number] IMPRESSION: 1. Fracture of the medial base of the proximal phalanx of the 2nd digit with fragment rotated approximately 90 degrees medially. This extends to the articular surface. 2. Soft tissue swelling between base of 2nd and 3rd digit.
--- NOTE | 2022-05-18 11:37 | DCPLANNER ---
Addendum entered by Chacha Suh 05/29/22 13:01: information systems project manager received the following message from the ortho clinic regarding follow up appointment: attempt made to contact patient/guardian - left vm and mailed letter to contact our clinic to schedule Original Note: information systems project manager had message to schedule a follow up appointment for patient with ortho. information systems project manager sent patients information to the front office staff at ortho. Patients information will be printed and reviewed. Clinic will call patient with appointment information.
== END 2022-05-16 11:30 | disposition home or self-care (01) ==
PROVIDERS: Emergency Provider Nurse Practitioner Family; PCP Family Medicine
DX: S62.611A Displaced fracture of proximal phalanx of left index finger, initial encounter for closed fracture (principal); X58.XXXA Exposure to other specified factors, initial encounter
CPT/HCPCS: 73120; 99283

== ENCOUNTER 2022-09-15 09:55 | Outpatient (CLI) | payer MEDICARE, MEDICAID, SELFPAY ==
--- NOTE | 2022-09-15 10:11 | MM_ITS ---
WS: [id number] BILATERAL SCREENING DIGITAL MAMMOGRAM WITH CAD HISTORY: SCREENING COMPARISON: 08/19/2021, 05/30/2020. Bilateral CC and MLO views submitted. Computer aided detection analyzed. Very limited evaluation of the breast. Nondiagnostic evaluation due to significant motion artifact an d patient was not cooperative. Breast composition: Extreme motion artifact. Limited evaluation for suspicious masses, microcalcifica tions or architectural distortion. MM/[id number] IMPRESSION: Nondiagnostic mammographic evaluation secondary to patient's lack of cooperatio n and motion.
== END 2022-09-15 09:56 | disposition home or self-care (01) ==
PROVIDERS: PCP Family Medicine; Visit Provider Family Medicine
DX: Z12.31 Encounter for screening mammogram for malignant neoplasm of breast (principal)
CPT/HCPCS: 77067

== ENCOUNTER 2023-09-21 09:29 | Outpatient (CLI) | payer MEDICARE, MEDICAID, SELFPAY ==
--- NOTE | 2023-09-21 09:30 | MM_ITS ---
WS: [id number] UNILATERAL RIGHT 3D TOMOSYNTHESIS DIGITAL SCREENING MAMMOGRAM WITH CAD and 2D screening mammography L EFT breast CLINICAL INFORMATION: Z12.31 - Encounter for screening mammogram for malignant ... HISTORY: Screening mammogram. No current complaints. COMPARISON: 2022 TECHNIQUE: Bilateral CC and MLO. FINDINGS: Somewhat limited evaluation of the breasts due to patient's condition The breast are composed of heterogeneous dense tissue, which can limit the detection of small underly ing mass lesions. No suspicious focal mass, asymmetry, calcifications, or architectural distortion. N o evidence of malignancy. IMPRESSION: MM/[place] [id number] BI-RADS: 2-Benign FOLLOW UP: 1 Year Follow-up Recommend return to annual screening mammography.
== END 2023-09-21 09:30 | disposition home or self-care (01) ==
LOC: RAD 09:32
PROVIDERS: PCP Family Medicine; Visit Provider Nurse Practitioner Women's Health
DX: Z12.31 Encounter for screening mammogram for malignant neoplasm of breast (principal)
CPT/HCPCS: 77063; 77067

== ENCOUNTER 2024-09-21 08:20 | Outpatient (CLI) | payer MEDICARE, MEDICAID, SELFPAY ==
--- NOTE | 2024-09-21 08:22 | MM_ITS ---
WS: [id number] BILATERAL SCREENING DIGITAL TOMOSYNTHESIS MAMMOGRAM WITH CAD HISTORY: SCREENING COMPARISON: 09/21/2023, 09/15/2022 Bilateral CC and MLO views with tomosynthesis and synthetic mammography submitted. Computer aided detection analyzed. Breast composition: The breasts are heterogeneously dense, which may obscure small masses. No suspicious masses, microcalcifications or architectural distortion. MM/MM scr tomosynthesis [id number] IMPRESSION: BI-RADS: 1 - Negative FOLLOW UP: 1 Year Follow-up
== END 2024-09-21 08:21 | disposition home or self-care (01) ==
LOC: RAD 08:20
PROVIDERS: PCP Family Medicine; Visit Provider Family Medicine
DX: Z12.31 Encounter for screening mammogram for malignant neoplasm of breast (principal); R92.333 Mammographic heterogeneous density, bilateral breasts
CPT/HCPCS: 77063; 77067